=== PATIENT | male | born 1930 | race Caucasian/White ===

== ENCOUNTER 2018-03-01 11:11 | Day surgery (SDC) | END 2018-03-01 16:30 | disposition home or self-care (01) ==

== ENCOUNTER → 2018-12-25 | Outpatient (CLI) | payer OTHER ==
[~2018-12-25] MED LIST: ACYC400T2 PO; ASPI81TA50 PO; ATOR20TA38 PO; DONE5TAB7 PO; ESCI10TA48 PO; LISI10TA2 PO; METO-335 PO; UBID100C24 PO
== END | disposition home or self-care (01) ==
LOC: C/S 10:05
PROVIDERS: ATTEND Internal Medicine Cardiovascular Disease
DX: I25.10 Atherosclerotic heart disease of native coronary artery without angina pectoris (principal)